=== PATIENT | male | born 1970 | race African-American/Black ===

== ENCOUNTER 2016-11-23 07:03 | Inpatient (IN) | payer MEDICAID ==
[2016-11-23] MEDS ORDERED: ONDANSETRON 4 MG/2 ML VIAL IVP ONE (07:08)
[2016-11-23] MEDS ORDERED: PANTOPRAZOLE SODIUM 80 MG in NS 100 ML IV ONE ×2 (07:08→07:10)
[2016-11-23] MEDS ORDERED: NS 500 ML IV ONE (07:08)
--- NOTE | 2016-11-23 07:14 | EDPHY ---
H & P Time Seen by Provider: 11/23/16 07:08 HPI/ROS: HPI Vomiting blood, dark stools, alcohol abuse. 46-year-old male by ambulance from his private residence which is an apartment. This patient reports he drinks a gal of hard liquor a day. Last drink was at 9:00 p.m. last night. He reports this morning having 2-3 episodes of bloody emesis and dark stools. He has had an ongoing cough for the last 4-5 days productive of yellow sputum. ROS: Constitutional: No fever, no chills. No weakness. Eyes: No discharge. No changes in vision. ENT: No sore throat. No nasal congestion or rhinorrhea. Respiratory: No cough. No shortness of breath. Cardiac: No chest pain, no palpitations. Gastrointestinal: No abdominal pain, as above. Genitourinary: No hematuria. No dysuria or increased frequency with urination. Musculoskeletal: No back pain. No neck pain. No myalgias or arthralgias. Skin: No rashes. Neurological: No headache. No focal weakness or altered sensation. Past medical history: Denies any past medical history except alcohol abuse as above. Social history: Lives in an apartment. Is not comfortable there secondary to other people living there. Long history of alcoholism. Physical Exam: General Appearance: Alert, no distress. Intermittent dry hacking cough. This patient is responding to questions appropriately and in full sentences. This patient appears well-hydrated and well-nourished. Eyes: Pupils equal and round no pallor or injection. No lid edema, erythema or injection. ENT, Mouth: Mucous membranes are moist. The pharyngeal tissues are unremarkable. No edema or swelling. No asymmetry suggestive of abscess. No erythema or exudates. Respiratory: There are no retractions, lungs are clear to auscultation with good air movement bilaterally. Cardiovascular: Regular rate and rhythm. No murmur. Gastrointestinal: Abdomen is soft with mild to moderate epigastric tenderness on palpation, no masses, bowel sounds normal. No focal tenderness at McBurney' s point. No Castellon sign. Rectal exam: No gross blood. Normal tone. No hemorrhoids. Dark brown stool. Rectal exam: Neurological: Motor sensory function is grossly intact. Cranial nerves are normal. Gait is normal. Skin: Warm and dry, no rashes. Musculoskeletal: Neck is supple and nontender. Extremities are symmetrical. All joints range without pain or impingement. Psychiatric: No agitation. No depression. Database: EKG: EKG time is 7:22 a.m.: EKG shows a narrow complex sinus tachycardia with ventricular rate of 111. The P are, QRS, QT intervals are within normal limits. There are no ST, T-wave changes indicative of acute ischemic or injury pattern. No evidence of right heart strain. Interpreted by me. Imaging: Chest x-ray PA and lateral; the cardiac mediastinal silhouette is unremarkable. No free air. No pneumothorax. Probable patchy left lower lobe infiltrate. No other acute cardiopulmonary disease process noted. Interpreted by me. Procedures: Emergency department course: IV placed x2. He was placed on a ekg monitor tech. His vital signs have been reviewed. He will be started on IV normal saline with 500 cc to be given over 1 hour. Type and screen sent. He was started on IV Protonix 80 mg IV bolus followed by a drip. He will be given IV Ativan as needed for alcohol withdrawal. After review of chest x-ray, patient started on IV azithromycin, 500 mg and 1 g of IV Rocephin for treatment of probable community-acquired pneumonia. Blood cultures were drawn. The patient's blood pressures have remained normal. His tachycardia is responding to IV fluids. 7:50 a.m., venous lactate drawn. Sepsis declared at this time. Patient is responding to IV fluids. Tachycardia has come down from the low 120s to 101. Blood pressure remains normal. 8:00 a.m., spoke to hospitalist. Patient accepted for admission. He will be admitted to the step-down unit. 8:40 a.m., patient has had is antibiotics. Initial serum venous lactate is 1.3. He does not meet criteria for severe sepsis. Patient admitted to the hospitalist service in stable and improved condition. Differential Diagnosis: The differential diagnosis on this patient includes but is not limited to upper versus lower gastrointestinal bleeding, bleeding esophageal varices, coagulopathy, peptic ulcer disease, bronchitis, influenza, pneumonia, alcohol withdrawal, alcohol abuse. This represents a partial list of diagnoses considered. These considerations are based on history, physical exam, past history, reassessment and diagnostic testing. Constitutional: Initial Vital Signs Temperature (C) 37.4 C 11/23/16 07:03 Heart Rate 123 H 11/23/16 07:03 Respiratory Rate 20 11/23/16 07:03 Blood Pressure 152/97 H 11/23/16 07:03 O2 Sat (%) 91 L 11/23/16 07:03 O2 Delivery Mode Nasal Cannula O2 (L/minute) 2 Allergies/Adverse Reactions: No Known Allergies Allergy (Unverified 11/23/16 07:14) Home Medications: Medication Instructions Recorded NK [No Known Home Meds] 11/23/16 Medical Decision Making - Data Points Laboratory Results: Laboratory Results 11/23/16 07:05 11/23/16 07:05 11/23/16 11/23/16 11/23/16 07:27 07:20 07:20 WBC RBC Hgb Hct MCV MCH MCHC RDW Plt Count MPV Neut % (Auto) Lymph % (Auto) Johnson % (Auto) Eos % (Auto) Baso % (Auto) Nucleat RBC Rel Count Absolute Neuts (auto) Absolute Lymphs (auto) Absolute Monos (auto) Absolute Eos (auto) Absolute Basos (auto) Absolute Nucleated RBC Immature Gran % Immature Gran # PT INR APTT Sodium Potassium Chloride Carbon Dioxide Anion Gap BUN Creatinine Estimated GFR Glucose Calcium Total Bilirubin 1.1 mg/dL mg/dL (0.1-1.4) Conjugated Bilirubin Unconjugated Bilirubin AST ALT Alkaline Phosphatase Total Protein Albumin Lipase Stool Occult Bld Scrn POSITIVE H (NEGATIVE) Patient ABO/Rh O POSITIVE Antibody Screen NEGATIVE 11/23/16 11/23/16 11/23/16 07:05 07:05 07:05 WBC 12.14 10^3/uL H 10^3/uL (3.80-9.50) RBC 5.21 10^6/uL 10^6/uL (4.40-6.38) Hgb 15.5 g/dL g/dL (13.7-17.5) Hct 44.2 % % (40.0-51.0) MCV 84.8 fL fL (81.5-99.8) MCH 29.8 pg pg (27.9-34.1) MCHC 35.1 g/dL g/dL (32.4-36.7) RDW 13.3 % % (11.5-15.2) Plt Count 204 10^3/uL 10^3/uL (150-400) MPV 9.7 fL fL (8.7-11.7) Neut % (Auto) 75.3 % H % (39.3-74.2) Lymph % (Auto) 18.9 % % (15.0-45.0) Johnson % (Auto) 5.1 % % (4.5-13.0) Eos % (Auto) 0.0 % L % (0.6-7.6) Baso % (Auto) 0.3 % % (0.3-1.7) Nucleat RBC Rel Count 0.0 % % (0.0-0.2) Absolute Neuts (auto) 9.13 10^3/uL H 10^3/uL (1.70-6.50) Absolute Lymphs (auto) 2.30 10^3/uL 10^3/uL (1.00-3.00) Absolute Monos (auto) 0.62 10^3/uL 10^3/uL (0.30-0.80) Absolute Eos (auto) 0.00 10^3/uL L 10^3/uL (0.03-0.40) Absolute Basos (auto) 0.04 10^3/uL 10^3/uL (0.02-0.10) Absolute Nucleated RBC 0.00 10^3/uL 10^3/uL (0-0.01) Immature Gran % 0.4 % % (0.0-1.1) Immature Gran # 0.05 10^3/uL 10^3/uL (0.00-0.10) PT 12.6 SEC SEC (12.0-15.0) INR 0.95 (0.83-1.16) APTT 27.9 SEC SEC (23.0-38.0) Sodium 132 mEq/L L mEq/L (134-144) Potassium 4.1 mEq/L mEq/L (3.5-5.2) Chloride 92 mEq/L L mEq/L (97-110) Carbon Dioxide 24 mEq/l mEq/l (22-31) Anion Gap 16 mEq/L mEq/L (8-16) BUN 11 mg/dL mg/dL (7-23) Creatinine 0.8 mg/dL mg/dL (0.7-1.3) Estimated GFR > 60 Glucose 108 mg/dL H mg/dL (70-100) Calcium 9.1 mg/dL mg/dL (8.5-10.4) Total Bilirubin 1.1 mg/dL mg/dL (0.1-1.4) Conjugated Bilirubin 0.4 mg/dL mg/dL (0.0-0.5) Unconjugated Bilirubin 0.7 mg/dL mg/dL (0.0-1.1) AST 40 IU/L IU/L (17-59) ALT 36 IU/L IU/L (21-72) Alkaline Phosphatase 103 IU/L IU/L (38-126) Total Protein 7.2 g/dL g/dL (6.3-8.2) Albumin 4.0 g/dL g/dL (3.5-5.0) Lipase 92.0 IU/L IU/L (23-300) Stool Occult Bld Scrn Patient ABO/Rh Antibody Screen Medications Given: Discontinued Medications Sodium Chloride (Ns) 500 mls @ 0 mls/hr IV ONCE ONE PRN Reason: Wide Open Stop: 11/23/16 07:09 Last Admin: 11/23/16 07:38 Dose: 500 mls Pantoprazole Sodium 80 mg/ (Sodium Chloride) 100 mls @ 200 mls/hr IV EDNOW ONE Stop: 11/23/16 07:39 Last Admin: 11/23/16 07:39 Dose: 100 mls Ceftriaxone Sodium/Dextrose (Rocephin 1 Gm (Premix)) 50 mls @ 100 mls/hr IV EDNOW ONE PRN Reason: Protocol Stop: 11/23/16 08:30 Last Admin: 11/23/16 08:24 Dose: 50 mls Ondansetron HCl (Zofran) 4 mg IVP EDNOW ONE Stop: 11/23/16 07:09 Last Admin: 11/23/16 07:39 Dose: 4 mg Promethazine HCl (Phenergan) 6.25 mg IVP EDNOW ONE Stop: 11/23/16 07:21 Last Admin: 11/23/16 07:39 Dose: 6.25 mg Departure - Departure Disposition: [facility] Inpatient Acute Clinical Impression: Hematemesis, Alcohol abuse, Bronchitis, Pneumonia, Sepsis, Gastrointestinal bleeding
[2016-11-23] MEDS ORDERED: PROMETHAZINE HCL 25 MG/ML INJ IVP ONE (07:20)
[2016-11-23 07:22] LABS: % IMMATURE GRANULYOCYTES 0.4 % (0.0-1.1); ABSOLUTE IMMATURE GRANULOCYTES 0.05 10^3/uL (0.00-0.10); ADD DIFF? NO; ADD MORPH? NO; ADD SCAN? NO; ATYPICAL LYMPHOCYTE FLAG 20 (0-99); FRAGMENT RBC FLAG 0 (0-99); HEMATOCRIT 44.2 % (40.0-51.0); HEMOGLOBIN 15.5 g/dL (13.7-17.5); LEFT SHIFT FLG 0 (0-99); LIPEMIA HEMOLYSIS FLAG 90 (0-99); MEAN CELL HEMOGLOBIN 29.8 pg (27.9-34.1); MEAN CELL HEMOGLOBIN CONCENTR. 35.1 g/dL (32.4-36.7); MEAN CELL VOLUME 84.8 fL (81.5-99.8); MEAN PLATELET VOLUME 9.7 fL (8.7-11.7); PLATELET CLUMPS FLAG 0 (0-99); PLATELET COUNT 204 10^3/uL (150-400); RED BLOOD CELL COUNT 5.21 10^6/uL (4.40-6.38); RED CELL DISTRIBUTION WIDTH 13.3 % (11.5-15.2)
--- NOTE | 2016-11-23 07:24 | CPEKG ---
Heart Rate: 111 RR Interval: 541 P-R Interval: 140 QRSD Interval: 70 QT Interval: 320 QTC Interval: 435 P [place]: 67 QRS [place]: 56 T Wave [place]: 56 EKG Severity - OTHERWISE NORMAL ECG - EKG Impression: SINUS TACHYCARDIA Electronically Signed By: Ro Carrillo 23-Nov-2016 07:41:34
[2016-11-23 07:33] LABS: APTT 27.9 SEC (23.0-38.0)
[2016-11-23 07:34] LABS: ALANINE AMINOTRANSFERASE 36 IU/L (21-72); ALKALINE PHOSPHATASE 103 IU/L (38-126); ANION GAP 16 mEq/L (8-16); ASPARTATE AMINOTRANSFERASE 40 IU/L (17-59); BILIRUBIN,TOTAL 1.1 mg/dL (0.1-1.4); BILIRUBIN-CONJUGATED 0.4 mg/dL (0.0-0.5); BILIRUBIN-UNCONJUGATED 0.7 mg/dL (0.0-1.1); CALCIUM 9.1 mg/dL (8.5-10.4); CARBON DIOXIDE 24 mEq/l (22-31); CHLORIDE 92 mEq/L (97-110); CREATININE 0.8 mg/dL (0.7-1.3); GLOMERULAR FILTRATION RATE > 60; GLUCOSE 108 mg/dL (70-100); POTASSIUM 4.1 mEq/L (3.5-5.2); SODIUM 132 mEq/L (134-144); TOTAL PROTEIN 7.2 g/dL (6.3-8.2)
[2016-11-23] MEDS ORDERED: NS 100 ML BAG IV ONE (07:35)
[2016-11-23] MEDS ORDERED: PANTOPRAZOLE SODIUM 40 MG VIAL ONE (07:35)
[2016-11-23] MEDS ORDERED: AZITHROMYCIN IV 500 MG in D5W 250 ML IV ONE (08:01)
[2016-11-23 08:07] LABS: INR 0.95 (0.83-1.16); PROTIME(PATIENT) 12.6 SEC (12.0-15.0)
[2016-11-23 08:24] LABS: BILIRUBIN,TOTAL 1.1 mg/dL (0.1-1.4)
[2016-11-23] MEDS ORDERED: ONDANSETRON 4 MG/2 ML VIAL IVP PRN (09:15)
[2016-11-23] MEDS: NS 1,000 ML IV SCH (10:41)
[2016-11-23] MEDS: NICOTINE 21 MG/24 HR PATCH TD SCH (10:47)
[2016-11-23] MEDS: ACETAMINOPHEN 325 MG TAB PO PRN ×2 (10:49→19:34)
[2016-11-23 12:22] LABS: HEMATOCRIT 38.9 % (40.0-51.0); HEMOGLOBIN 13.5 g/dL (13.7-17.5)
[2016-11-23] MEDS: LORazepam 2 MG/ML INJ IVP PRN (13:32)
--- NOTE | 2016-11-23 16:06 | GHP ---
DATE OF ADMISSION: 11/23/2016 CHIEF COMPLAINT: Melena, hematemesis. HISTORY OF PRESENT ILLNESS: The patient is a 46-year-old homeless male, recently moved to [place] 4 months ago, presenting with hematemesis and melena. He drinks a gallon of vodka daily. Last night, felt ill and had emesis x2 with bright red blood. Then had an episode of melena; never having symptoms like this in the past. Complained of sharp epigastric pain without radiation and felt hot during this episode. Reports new cough with yellow sputum production as well as nasal congestion. Had a headache but this has since resolved. He was dizzy yesterday with standing. He denies any NSAID use. He does have a history of alcohol withdrawal and seizure. REVIEW OF SYSTEMS: I completed a 10-point review of systems, negative except as noted in HPI. PAST MEDICAL HISTORY: 1. Alcohol abuse. 2. Tobacco abuse. SOCIAL HISTORY: Moved from [place] 4 months ago. Was living with a friend. Alcohol: Drinks a gallon of vodka daily. Tobacco: A pack a day for 20 years. Denies illicits. MEDICATIONS: None. ALLERGIES: None. PAST SURGICAL HISTORY: Just stitches. FAMILY HISTORY: Maternal aunt with hypertension. PHYSICAL EXAM: VITAL SIGNS: Temperature 37.4, blood pressure 152/97, heart rate 123 and now 92, respirations 16-25, 98% on 2 L. GENERAL: A thin male in no acute distress. HEENT: PERRLA. EOMI. Dry mucous membranes. Poor dentition. CV: Tachy. Regular. No murmurs, gallops, or rubs. LUNGS: Clear to auscultation. GI: Epigastric and left lower quadrant tenderness to palpation. No rebound or guarding. Positive bowel sounds. : No suprapubic tenderness. No [place]. NEURO: 2-12 intact. No tremor. No tongue fasciculations. PSYCH: Alert and oriented x3. LABS: WBCs 12.14, hemoglobin 15.5, hematocrit 44, platelets 204. Lactic acid is 1.3. INR 0.93, PT 12.6. Sodium 132 potassium 4.1, chloride 92, carbon dioxide 24, gap 16, creatinine 0.8, glucose 108, calcium 9.1, phos 2.2, total bilirubin 1.1, AST 40, ALT 36. Lipase 92. Chest x-ray was personally reviewed by me. Left lower lobe opacity. EKG, personally reviewed by me. Sinus tachycardia, regular rate and rhythm. ASSESSMENT AND PLAN: 1. Acute gastrointestinal bleed: endorsed bright red blood, hematemesis, and melena. Differential includes alcoholic gastritis versus ulcer. No known h/o varices. Denies NSAIDs. H/ H are currently stable. Start IV PPI. Serial CBCs. Currently hemodynamically stable. We will hydrate with IV fluids. GI is aware of patient, but at this time we will monitor labs and consider scope if continues to drop in hemoglobin. 2. Community-acquired pneumonia: Left lower lobe opacity with symptoms. Treat with azithromycin and ceftriaxone. 3. Tobacco abuse: Nicotine patch. 4. Alcohol abuse: Drinking a gallon a day. Says he would like to quit. We will have case management see him. On [facility]. 5. Hypovolemic hyponatremia: Secondary to emesis and decreased p.o. intake. We will hydrate with fluids. 6. Epigastric pain: Suspect this is secondary to gastritis. We will continue PPI. 7. Diet: Advance to clears. 8. DVT prophylaxis: None given acute GI bleed and ambulatory. 9. Disposition: Patient warrants inpatient admission given concern for GI bleed and requiring serial labs and IV PPI. /[id number]/MODL MTDD
[2016-11-23 17:37] LABS: HEMATOCRIT 38.3 % (40.0-51.0); HEMOGLOBIN 13.4 g/dL (13.7-17.5)
[2016-11-23] MEDS ORDERED: K PHOS 15 MMOL in D5W 250 ML IV ONE (20:27)
[2016-11-23] MEDS: LORazepam 1 MG TAB PO PRN (21:07)
[2016-11-24 00:57] LABS: HEMATOCRIT 37.5 % (40.0-51.0); HEMOGLOBIN 12.8 g/dL (13.7-17.5)
[2016-11-24] MEDS: LORazepam 1 MG TAB PO PRN ×5 (05:34→23:37)
[2016-11-24 06:01] LABS: % IMMATURE GRANULYOCYTES 0.4 % (0.0-1.1); ABSOLUTE IMMATURE GRANULOCYTES 0.03 10^3/uL (0.00-0.10); ADD DIFF? NO; ADD MORPH? NO; ADD SCAN? YES; ATYPICAL LYMPHOCYTE FLAG 70 (0-99); FRAGMENT RBC FLAG 0 (0-99); HEMATOCRIT 38.1 % (40.0-51.0); HEMOGLOBIN 12.9 g/dL (13.7-17.5); LEFT SHIFT FLG 0 (0-99); LIPEMIA HEMOLYSIS FLAG 90 (0-99); MEAN CELL HEMOGLOBIN 29.4 pg (27.9-34.1); MEAN CELL HEMOGLOBIN CONCENTR. 33.9 g/dL (32.4-36.7); MEAN CELL VOLUME 86.8 fL (81.5-99.8); MEAN PLATELET VOLUME 9.4 fL (8.7-11.7); PLATELET CLUMPS FLAG 0 (0-99); PLATELET COUNT 156 10^3/uL (150-400); RED BLOOD CELL COUNT 4.39 10^6/uL (4.40-6.38); RED CELL DISTRIBUTION WIDTH 13.7 % (11.5-15.2)
[2016-11-24 06:23] LABS: ANION GAP 4 mEq/L (8-16); CALCIUM 8.1 mg/dL (8.5-10.4); CARBON DIOXIDE 24 mEq/l (22-31); CHLORIDE 109 mEq/L (97-110); CREATININE 0.7 mg/dL (0.7-1.3); GLOMERULAR FILTRATION RATE > 60; GLUCOSE 86 mg/dL (70-100); POTASSIUM 4.1 mEq/L (3.5-5.2); SODIUM 137 mEq/L (134-144)
[2016-11-24 07:16] LABS: SCAN NEGATIVE
[2016-11-24] MEDS: PANTOPRAZOLE SODIUM 40 MG in NS 100 ML IV SCH ×2 (09:09→20:11)
[2016-11-24] MEDS: AZITHROMYCIN 250 MG TAB PO SCH (10:25)
[2016-11-24] MEDS: NICOTINE 21 MG/24 HR PATCH TD SCH (10:25)
[2016-11-24 10:53] LABS: HEMATOCRIT 39.1 % (40.0-51.0); HEMOGLOBIN 13.3 g/dL (13.7-17.5)
[2016-11-24] MEDS: IPRATROPIUM/ALBUTEROL 3 ML DEYVIAL IH PRN ×2 (11:43→19:56)
--- NOTE | 2016-11-24 13:58 | GCON ---
PULMONARY/CRITICAL CARE CONSULTATION DATE OF CONSULTATION: 11/23/2016 REFERRING PHYSICIAN: Rowan Ash MD REASON FOR REFERRAL: Evaluation and management of anemia, hyponatremia, and alcohol withdrawal. HISTORY: The patient is a 46-year-old homeless man who drinks a gallon of vodka daily. Last night he felt ill and vomited twice with bright red blood. He then had a single episode of melena. He denies any prior history of this. He had some sharp epigastric pain during this episode but that has since resolved. Since that episode of vomiting, he has had a cough with some scant, yellow sputum production. His says his stomach is now feeling better and he denies nausea or vomiting today. PAST MEDICAL HISTORY: 1. Chronic alcohol abuse. The patient has had seizures in the past with alcohol withdrawal. 2. Tobacco use. MEDICATIONS: None. ALLERGIES: None. SOCIAL HISTORY: The patient moved here from [place] 4 months. He reports that he drinks a gallon of vodka daily and smokes a pack of cigarettes daily. He denies any other drug use. FAMILY HISTORY: Unremarkable. REVIEW OF SYSTEMS: A 10-point review of systems adds nothing to the History of Present Illness. PHYSICAL EXAMINATION: GENERAL: The patient is awake, alert, and in no acute distress. VITAL SIGNS: His blood pressure is 131/81 with a pulse of 92. He is afebrile. Oxygen saturations are 98% on 2 L. HEENT: Normocephalic and atraumatic. No icterus. NECK: No JVD. Trachea is midline. CHEST: He has a few crackles in the bases. CARDIAC: Regular rate and rhythm without murmur. ABDOMEN: Soft, nontender. Bowel sounds are present. EXTREMITIES: No clubbing , cyanosis, or edema. NEUROLOGIC: The patient is alert. He moves all extremities with good strength. He has a mild tremor. LABORATORY: Sodium is 132 with a chloride of 92. His white blood count is 12.1. His hemoglobin is 13.4, down from 15.5 at admission. His MCV is 84.8, platelet count is 204, and INR is 0.95. A venous lactate is 1.3. A chest x- ray shows a possible left lower lobe pneumonia. ASSESSMENT: 1. Anemia. This is likely due to acute blood loss from an upper gastrointestinal bleed. This could be due to gastritis, a [place] tear, or peptic ulcer disease. The patient has been started on pantoprazole and is hemodynamically stable. 2. Left lower lobe pneumonia. This is likely bacterial and could be aspiration. He has minimal oxygen needs. 3. Alcohol abuse. The patient stopped drinking and would like to stop drinking long-term during this hospitalization. 4. Hyponatremia. This is mild and may be related to volume loss. RECOMMENDATIONS: 1. Agree with continuing ceftriaxone and azithromycin. If the patient worsens clinically, consider broadening to cover anaerobic organisms. 2. Follow serum sodium and hemoglobin. 3. Consider endoscopy if the patient has continued GI bleeding. /[id number]/MODL MTDD
--- NOTE | 2016-11-24 16:09 | HOSPPROG ---
Hospitalist Progress Note Assessment/Plan: #Acute blood loss anemia: due to melena. DDx: gastritis vs ulcer. H/H remain stable today. Cont IV PPI. Serial H/H. No emergent scope at this time #CAP: cont Azithr/LQ #Alcohol withdrawal: mild, CIWA #Alcohol abuse: pt wants to quit. Case management to assist. I counseled on importance of cessation #Hypovolemic hyponatremia: resolved with IVFs #Hypophosphatemia: repleted #Diet: clears, ADAT #Disp: monitor overnight, if H/H remains stable, will DC tomorrow. Transfer to med/surg Subjective: large black stool this morning, mild dizziness Objective: Vital Signs Temp Pulse Resp BP Pulse Ox 36.6 C 77 20 148/77 H 94 11/24/16 08:25 11/24/16 08:25 11/24/16 08:25 11/24/16 08:25 11/24/16 08:25 Laboratory Results 11/24/16 10:35 11/24/16 05:35 11/23/16 11/24/16 11/25/16 05:59 05:59 05:59 Intake Total 4515.8 Output Total 1800 400 Balance 2715.8 -400 PT 12.6 SEC (12.0-15.0) 11/23/16 07:05 INR 0.95 (0.83-1.16) 11/23/16 07:05 - Physical Exam Constitutional: no apparent distress, cachectic Eyes: PERRL Ears, Nose, Mouth, Throat: moist mucous membranes, hearing normal Cardiovascular: regular rate and rhythym, no murmur, rub, or gallop Respiratory: rhonchi Gastrointestinal: normoactive bowel sounds, soft, non-tender abdomen, tenderness (mild in epigastrum) Genitourinary: no bladder fullness Skin: warm Musculoskeletal: full muscle strength Neurologic: AAOx3 Psychiatric: interacting appropriately ICD10 Worksheet Patient Problems: Problems Problem Status Onset Alcohol abuse Acute Bronchitis Acute Gastrointestinal bleeding Acute Hematemesis Acute Pneumonia Acute
[2016-11-24] MEDS: ACETAMINOPHEN 325 MG TAB PO PRN ×2 (19:45→23:37)
[2016-11-24] MEDS: NS 1,000 ML IV SCH (20:11)
[2016-11-24] MEDS: LORazepam 2 MG/ML INJ IVP PRN (20:28)
[2016-11-25 05:20] LABS: % IMMATURE GRANULYOCYTES 0.2 % (0.0-1.1); ABSOLUTE IMMATURE GRANULOCYTES 0.01 10^3/uL (0.00-0.10); ADD DIFF? NO; ADD MORPH? NO; ADD SCAN? NO; ATYPICAL LYMPHOCYTE FLAG 90 (0-99); FRAGMENT RBC FLAG 0 (0-99); HEMATOCRIT 35.7 % (40.0-51.0); HEMOGLOBIN 12.3 g/dL (13.7-17.5); LEFT SHIFT FLG 0 (0-99); LIPEMIA HEMOLYSIS FLAG 90 (0-99); MEAN CELL HEMOGLOBIN 29.2 pg (27.9-34.1); MEAN CELL HEMOGLOBIN CONCENTR. 34.5 g/dL (32.4-36.7); MEAN CELL VOLUME 84.8 fL (81.5-99.8); MEAN PLATELET VOLUME 9.2 fL (8.7-11.7); PLATELET CLUMPS FLAG 10 (0-99); PLATELET COUNT 161 10^3/uL (150-400); RED BLOOD CELL COUNT 4.21 10^6/uL (4.40-6.38); RED CELL DISTRIBUTION WIDTH 13.4 % (11.5-15.2)
[2016-11-25 05:30] LABS: MAGNESIUM 1.7 mg/dL (1.6-2.3)
[2016-11-25] MEDS: LORazepam 1 MG TAB PO PRN ×4 (07:23→21:16)
[2016-11-25] MEDS: NS 1,000 ML IV SCH (07:57)
[2016-11-25] MEDS: NICOTINE 21 MG/24 HR PATCH TD SCH (09:59)
[2016-11-25] MEDS: AZITHROMYCIN 250 MG TAB PO SCH (09:59)
[2016-11-25] MEDS: PANTOPRAZOLE SODIUM 40 MG in NS 100 ML IV SCH (11:45)
[2016-11-25] MEDS: ACETAMINOPHEN 325 MG TAB PO PRN ×3 (12:03→21:16)
[2016-11-25] MEDS: ONDANSETRON DISINTEGRATING 4 MG TAB PO PRN (15:04)
--- NOTE | 2016-11-25 17:06 | HOSPPROG ---
Hospitalist Progress Note Assessment/Plan: #Acute blood loss anemia: due to melena. DDx: gastritis vs ulcer. H/H remain stable today. Change to PO PPI. No emergent scope at this time #CAP: cont Azithr/LQ #Alcohol withdrawal: now with increased score, cont CIWA #Alcohol abuse: pt wants to quit. Case management to assist. I counseled on importance of cessation #Hypovolemic hyponatremia: resolved with IVFs #Hypophosphatemia: repleted #Diet: clears, ADAT #Disp: warrant inpt admission given worsening Etoh w/d. Cont PRN BZs, CIWA Objective: Vital Signs Temp Pulse Resp BP Pulse Ox 36.4 C 61 18 157/91 H 92 11/25/16 15:29 11/25/16 15:29 11/25/16 15:29 11/25/16 15:29 11/25/16 15:29 Laboratory Results 11/25/16 05:00 11/24/16 05:35 11/24/16 11/25/16 11/26/16 05:59 05:59 05:59 Intake Total 4515.8 1000 Output Total 1800 1400 150 Balance 2715.8 -400 -150 PT 12.6 SEC (12.0-15.0) 11/23/16 07:05 INR 0.95 (0.83-1.16) 11/23/16 07:05 - Physical Exam Constitutional: no apparent distress Eyes: PERRL Ears, Nose, Mouth, Throat: moist mucous membranes Cardiovascular: regular rate and rhythym, no murmur, rub, or gallop Respiratory: no respiratory distress, rhonchi Gastrointestinal: normoactive bowel sounds, tenderness (less epigastric TTP ) Genitourinary: no bladder fullness Skin: warm Musculoskeletal: full muscle strength Neurologic: AAOx3, CN II-XII Intact, other (mild tremor and tongue fasiculations ) Psychiatric: interacting appropriately ICD10 Worksheet Patient Problems: Problems Problem Status Onset Alcohol abuse Acute Bronchitis Acute Gastrointestinal bleeding Acute Hematemesis Acute Pneumonia Acute
[2016-11-25] MEDS: PANTOPRAZOLE SODIUM 40 MG TAB PO SCH (19:33)
[2016-11-26] MEDS: LORazepam 1 MG TAB PO PRN ×6 (01:03→20:46)
[2016-11-26] MEDS: ACETAMINOPHEN 325 MG TAB PO PRN ×5 (05:01→20:45)
[2016-11-26 05:38] LABS: % IMMATURE GRANULYOCYTES 0.5 % (0.0-1.1); ABSOLUTE IMMATURE GRANULOCYTES 0.03 10^3/uL (0.00-0.10); ADD DIFF? NO; ADD MORPH? NO; ADD SCAN? YES; FRAGMENT RBC FLAG 0 (0-99); HEMATOCRIT 36.8 % (40.0-51.0); HEMOGLOBIN 12.7 g/dL (13.7-17.5); LEFT SHIFT FLG 0 (0-99); LIPEMIA HEMOLYSIS FLAG 90 (0-99); MEAN CELL HEMOGLOBIN 29.2 pg (27.9-34.1); MEAN CELL HEMOGLOBIN CONCENTR. 34.5 g/dL (32.4-36.7); MEAN CELL VOLUME 84.6 fL (81.5-99.8); MEAN PLATELET VOLUME 9.2 fL (8.7-11.7); PLATELET CLUMPS FLAG 20 (0-99); PLATELET COUNT 188 10^3/uL (150-400); RED BLOOD CELL COUNT 4.35 10^6/uL (4.40-6.38); RED CELL DISTRIBUTION WIDTH 13.3 % (11.5-15.2)
[2016-11-26 05:39] LABS: ATYPICAL LYMPHOCYTE FLAG 140 (0-99)
[2016-11-26 05:59] LABS: ANION GAP 5 mEq/L (8-16); CALCIUM 8.5 mg/dL (8.5-10.4); CARBON DIOXIDE 24 mEq/l (22-31); CHLORIDE 108 mEq/L (97-110); CREATININE 0.8 mg/dL (0.7-1.3); GLOMERULAR FILTRATION RATE > 60; GLUCOSE 110 mg/dL (70-100); MAGNESIUM 1.6 mg/dL (1.6-2.3); POTASSIUM 3.6 mEq/L (3.5-5.2); SODIUM 137 mEq/L (134-144)
[2016-11-26 06:02] LABS: SCAN NEGATIVE
[2016-11-26] MEDS: NICOTINE 21 MG/24 HR PATCH TD SCH (08:58)
[2016-11-26] MEDS: AZITHROMYCIN 250 MG TAB PO SCH (08:59)
[2016-11-26] MEDS: PANTOPRAZOLE SODIUM 40 MG TAB PO SCH ×2 (09:01→20:46)
[2016-11-26] MEDS: ONDANSETRON DISINTEGRATING 4 MG TAB PO PRN (09:01)
[2016-11-26] MEDS: THIAMINE HCL 100 MG TAB PO SCH (09:01)
[2016-11-26] MEDS ORDERED: FLU VACC QS 2016-17(3-64YR)/PF 0.5 ML SYR (FLUARIX QUAD) IM ONE ×2 (12:41→12:49)
[2016-11-26] MEDS ORDERED: PNEUMOCOCCAL 0.5ML VACCINE VIAL IM ONE (12:41)
[2016-11-26] MEDS ORDERED: PNEUMOCOCCAL 0.5ML VACCINE VIAL ONE (12:49)
--- NOTE | 2016-11-26 13:09 | HOSPPROG ---
Hospitalist Progress Note Assessment/Plan: #Acute blood loss anemia: stable. Due to melena. DDx: gastritis vs ulcer. H/H remain stable today. Change to PO PPI. No emergent scope at this time #CAP: cont Azithr/LQ (Day3/) #Alcohol withdrawal: needing moderate amount benzos still #Alcohol abuse: pt wants to quit. Asked case management to evaluate. Counseled him on cessation #Hypovolemic hyponatremia: resolved with IVFs #Hypophosphatemia: repleted #Accelerated HTN: due to w/d. #Diet: clears, ADAT #Disp: warrant inpt admission given worsening Etoh w/d. Cont PRN BZs, CIWA Subjective: no KONG or dizziness Objective: Vital Signs Temp Pulse Resp BP Pulse Ox 36.6 C 66 28 H 181/94 H 96 11/26/16 11:31 11/26/16 11:31 11/26/16 11:31 11/26/16 11:31 11/26/16 11:31 Laboratory Results 11/26/16 04:59 11/26/16 04:59 11/25/16 11/26/16 11/27/16 05:59 05:59 05:59 Intake Total 1000 850 350 Output Total 1400 750 600 Balance -400 100 -250 PT 12.6 SEC (12.0-15.0) 11/23/16 07:05 INR 0.95 (0.83-1.16) 11/23/16 07:05 - Physical Exam Constitutional: no apparent distress Eyes: PERRL Ears, Nose, Mouth, Throat: moist mucous membranes, hearing normal Cardiovascular: regular rate and rhythym, no murmur, rub, or gallop Respiratory: rhonchi (less rhonchi today) Gastrointestinal: normoactive bowel sounds, soft, non-tender abdomen, tenderness (min pain in epigastrum) Genitourinary: no bladder fullness Skin: warm Musculoskeletal: full muscle strength Neurologic: AAOx3, CN II-XII Intact, other (mild tremor and tongue fasciulations ) ICD10 Worksheet Patient Problems: Problems Problem Status Onset Alcohol abuse Acute Bronchitis Acute Gastrointestinal bleeding Acute Hematemesis Acute Pneumonia Acute
[2016-11-27] MEDS: ACETAMINOPHEN 325 MG TAB PO PRN ×4 (00:56→14:21)
[2016-11-27] MEDS: LORazepam 1 MG TAB PO PRN ×3 (00:56→20:59)
[2016-11-27 05:12] LABS: HEMATOCRIT 39.9 % (40.0-51.0); HEMOGLOBIN 13.5 g/dL (13.7-17.5); MEAN CELL HEMOGLOBIN 28.7 pg (27.9-34.1); MEAN CELL HEMOGLOBIN CONCENTR. 33.8 g/dL (32.4-36.7); MEAN CELL VOLUME 84.9 fL (81.5-99.8); RED BLOOD CELL COUNT 4.7 10^6/uL (4.40-6.38); RED CELL DISTRIBUTION WIDTH 13.2 % (11.5-15.2)
[2016-11-27 05:26] LABS: ANION GAP 7 mEq/L (8-16); CALCIUM 8.6 mg/dL (8.5-10.4); CARBON DIOXIDE 26 mEq/l (22-31); CHLORIDE 104 mEq/L (97-110); CREATININE 0.8 mg/dL (0.7-1.3); GLOMERULAR FILTRATION RATE > 60; GLUCOSE 88 mg/dL (70-100); POTASSIUM 3.9 mEq/L (3.5-5.2); SODIUM 137 mEq/L (134-144)
[2016-11-27] MEDS: THIAMINE HCL 100 MG TAB PO SCH (08:45)
[2016-11-27] MEDS: AZITHROMYCIN 250 MG TAB PO SCH (08:45)
[2016-11-27] MEDS: NICOTINE 21 MG/24 HR PATCH TD SCH (08:46)
[2016-11-27] MEDS: PANTOPRAZOLE SODIUM 40 MG TAB PO SCH ×2 (08:46→19:28)
[2016-11-27] MEDS: hydrALAZINE 10 MG TAB PO PRN ×2 (08:46→19:28)
--- NOTE | 2016-11-27 13:53 | HOSPPROG ---
Hospitalist Progress Note Assessment/Plan: Patient is a homeless man who presented to the emergency room with melena. Today is my 1st encounter with the patient. Chart reviewed. #Acute blood loss anemia:gastritis vs ulcer -h/h stable -ppi bid -scope not indicated at this time #CAP: cont Azithr/LQ (Day4/5) -blood cx show no growth #htn -added prn meds -likely due to withdrawals/ does not have a diagnosis of this -has some bradycardia so placed on prn hydralazine #Alcohol withdrawal: needing moderate amount benzos still # emesis with eating -check abd xray -dc regular diet and resume clears #flank pain -check ua #headaches -ibuprofen, tylenol not helping -with stable h/h should be ok w ibuprofen #Alcohol abuse: pt wants to quit. Asked case management to evaluate. Counseled him on cessation #Hypovolemic hyponatremia -resolved with hydration #Hypophosphatemia: repleted #Homelessness -family lives in [place] area -he has the # to [facility] to a program in [place] to give him work and support/ patient has been unable to get through -explained to Iban, if he is stable, he will be dc and likely need to go the skilled nursing if the [facility] 13 program isn't set up #Diet: clears #Disp: warrant inpt admission given worsening Etoh w/d. Cont PRN BZs, CIWA Subjective: Iban is c/o bilateral flank pain, wants to eat, but has emesis with eating. Objective: Vital Signs Temp Pulse Resp BP Pulse Ox 36.5 C 69 16 176/104 H 93 11/27/16 11:35 11/27/16 11:35 11/27/16 11:35 11/27/16 11:35 11/27/16 11:35 Laboratory Results 11/27/16 04:30 11/27/16 04:30 11/26/16 11/27/16 11/28/16 05:59 05:59 05:59 Intake Total 850 817 Output Total 750 2000 300 Balance 100 -1183 -300 PT 12.6 SEC (12.0-15.0) 11/23/16 07:05 INR 0.95 (0.83-1.16) 11/23/16 07:05 - Physical Exam Constitutional: no apparent distress, other (thin) Eyes: PERRL Ears, Nose, Mouth, Throat: hearing normal Cardiovascular: regular rate and rhythym, no murmur, rub, or gallop Respiratory: no respiratory distress, no rales or rhonchi Gastrointestinal: normoactive bowel sounds, soft, non-tender abdomen Skin: warm Musculoskeletal: full muscle strength Neurologic: AAOx3 Psychiatric: interacting appropriately, not anxious ICD10 Worksheet Patient Problems: Problems Problem Status Onset Alcohol abuse Acute Bronchitis Acute Gastrointestinal bleeding Acute Hematemesis Acute Pneumonia Acute
[2016-11-27 15:40] LABS: COLOR PALE YELLOW; LEUKOCYTE ESTERASE,URINE NEGATIVE (NEGATIVE); NITRITE,URINE NEGATIVE (NEGATIVE)
[2016-11-27] MEDS: IBUPROFEN 200 MG TAB PO PRN (16:56)
[2016-11-27] MEDS: ONDANSETRON DISINTEGRATING 4 MG TAB PO PRN (19:28)
[2016-11-28] MEDS: hydrALAZINE 10 MG TAB PO PRN ×2 (04:45→08:17)
[2016-11-28] MEDS: IBUPROFEN 200 MG TAB PO PRN ×2 (06:14→15:08)
[2016-11-28] MEDS: PANTOPRAZOLE SODIUM 40 MG TAB PO SCH (08:17)
[2016-11-28] MEDS: AZITHROMYCIN 250 MG TAB PO SCH (08:17)
[2016-11-28] MEDS: THIAMINE HCL 100 MG TAB PO SCH (08:17)
[2016-11-28] MEDS: NICOTINE 21 MG/24 HR PATCH TD SCH (08:18)
[2016-11-28] MEDS ORDERED: LISINOPRIL 5 MG TAB PO SCH (09:30)
[2016-11-28 12:21] VITALS: BP 129/89; PULSE 82; RESP 18; TEMP 97.4; O2SAT 94
--- NOTE | 2016-11-28 15:48 | GDS ---
[f rep st] DISCHARGE SUMMARY DISCHARGE DIAGNOSES: 1. Community-acquired pneumonia. 2. Melena. 3. Hypertension. 4. Alcohol withdrawal. 5. Flank pain. 6. Constipation. 7. Headaches. 8. Alcohol abuse. 9. Hypovolemic hyponatremia. 10. Hypophosphatemia. 11. Homelessness. CONSULTATIONS: Dr. Lewis of pulmonology. PHYSICAL EXAM: GENERAL: The patient is alert. VITAL SIGNS: Afebrile at 36.3. Pulse is 82. Resp iratory rate is 18. Blood pressure is 129/89. He is saturating 94% on room air. I have seen and e valuated the patient on the day of discharge. HOSPITAL COURSE: 1. The patient is a 46-year-old male who presented to the emergency room with complaints of melena. He was evaluated and diagnosed with acute blood-loss anemia. His H and H have remained stable. H e has been placed on a proton pump inhibitor and will be provided a prescription for this at the petar e of disposition. He has no further signs of bleeding or complications. 2. Community-acquired pneumonia. He has been treated during this hospitalization with azithromycin as well as Levaquin. His blood cultures show no growth. He is afebrile and he is saturating appro priately on room air. 3. Hypertension. I have placed the patient on hydrochlorothiazide, and [facility]. 4. Acute alcohol withdrawal. This has resolved. 5. Nausea with vomiting. This has resolved. Abdominal x-ray notes some constipation, but the kevin ent states that this has resolved since x-ray. 6. Flank pain. This has resolved per the patient. 7. Alcohol abuse. Case Management has been involved with counseling and providing resources for e patient. 8. Hypovolemic hyponatremia. This resolved with hydration. 9. Hypophosphatemia. This resolved with repletion. DISPOSITION: The patient will be discharged to the street as he is homeless. He does state that he has a family member driving from [place] to come and pick him up and take him back to [place]. He has been provided resources at length by Case Management as well as clothing and outpatient followup. T here are no pending studies. DISCHARGE MEDICATIONS: Please refer to EMR form. I have provided the patient a prescription for Le vaquin 750 mg as well as hydrochlorothiazide and Protonix. Followup will be at [facility] or the provider of his choice. I spent greater than 35 minutes in the care, coordination, and management of this patient's disposit ion. /[id number]/MODL
[2016-11-29] MEDS ORDERED: HYDROCHLOROTHIAZIDE 12.5 MG CAP PO SCH (09:00)
== END 2016-11-28 16:17 | disposition home or self-care (01) | DRG 194 ==
LOC: F2N 09:57 → F3N 11-25 06:48
PROVIDERS: ADMIT Internal Medicine; ATTEND Internal Medicine
DX: J18.8 Other pneumonia, unspecified organism (principal); K92.1 Melena; K92.0 Hematemesis; D62 Acute posthemorrhagic anemia; F10.239 Alcohol dependence with withdrawal, unspecified; E87.1 Hypo-osmolality and hyponatremia; K59.00 Constipation, unspecified; R51 Headache; I10 Essential (primary) hypertension; E86.1 Hypovolemia; E83.39 Other disorders of phosphorus metabolism; Z59.0 Homelessness; Z23 Encounter for immunization; Z72.0 Tobacco use
CPT/HCPCS: 96365; 96366; 97112-GP; 97116-GP; 97161-GP; G0008; G0009; J0456; J0696; J2405; J2550